=== PATIENT | male | born 1955 | race African-American/Black ===

== ENCOUNTER 2016-06-08 14:45 | Inpatient (IN) | payer OTHER ==
[~2016-06-08] VITALS: Ht 170.2 cm; Wt 97.1 kg
--- NOTE | ~2016-06-08 | D ---
[facility] [place] [address] DISCHARGE SUMMARY Name: JOSEPH MOSLEY Room #: 426-P DIS IN M.R.#: [id number] Admission: 06/08/16 Attend Phys: Bienvenido Gamez MD Discharge: 06/13/16 Date of : 55 Report #: [id number] THIS REPORT FOR: //name// CC: SHAHRAM physician/PCP Bienvenido Gamez DATE OF SERVICE: 06/13/2016 HISTORY OF PRESENT ILLNESS: The patient is a 60-year-old man who came to the hospital with chest pain. Please refer to admission H and P for details. The patient has multiple medical problems, including diabetes mellitus type 2, chronic kidney disease, as well as metastatic prostate cancer. HOSPITALIZATION COURSE: The patient was hospitalized at [facility]. The patient was seen by health care recruiter. He had cardiac enzymes checked, as well as EKG was followed. There was no evidence of acute coronary syndrome. Roof Technician requested information from the outside hospital. The patient apparently had normal cardiac echo and stress test just few months ago at [facility]. The patient has history of metastatic prostate cancer. Oncologist was consulted. Apparently, the patient has metastatic disease to the bones, including sternal bone, that causes the patient's pain. , the pain is controlled. The patient already is seen by oncologist before, and he will continue to follow up with his oncologist when he goes home. The patient also has elevated creatinine to 1.7. Metformin was discontinued. The patient will be prescribed Januvia. The patient also has a history of schizophrenia. He was seen by psychiatrist. His condition remained stable. Psychiatrist recommended continuation of , as well as citalopram and alprazolam. Currently, the patient's condition is acceptable for him to go home. DISCHARGE DIAGNOSES: 1. Sternal pain, likely due to metastatic prostate cancer to the bones. No evidence of acute coronary syndrome. 2. Reportedly negative cardiac workup few months ago at [facility], including negative stress test and an unremarkable cardiac echo. 3. Diabetes mellitus type 2, suboptimal control, hemoglobin A1c 7.6%. 4. Pancytopenia. 5. Chronic kidney disease stage 3. 6. Schizophrenia, stable on current meds. 7. Hypertension. 8. Dyslipidemia. [address] [address] DISCHARGE SUMMARY Name: JOSEPH MOSLEY Room #: 426-P DIS IN M.R.#: [id number] Admission: 06/08/16 Attend Phys: Bienvenido Gamez MD Discharge: 06/13/16 Date of : 55 Report #: [id number] DISCHARGE MEDICATIONS: Please refer to the medication reconciliation section in the patient's chart. DISPOSITION: The patient is discharged home. FOLLOWUP PLAN: 1. Follow up with the primary care physician in 1-2 weeks. 2. Follow up with oncologist in 1-2 weeks. I spent greater than 30 minutes to coordinate the patient's discharge from the hospital. By: 1208 [id number] Salomon Govea MD /nt
--- NOTE | ~2016-06-08 | S ---
[facility] [place] [address] SURGICAL PATH RPT PROCEDURE Name: JOSEPH MOSLEY Room #: 205-P ADM IN M.R.#: [id number] Admission: 06/08/16 Date of : 55 Discharge: Report #: [id number] Path Case #: [id number] PATHOLOGY REPORT COLLECTION DATE: 06/09/2016 RECEIVED DATE: 06/09/2016 SUBMITTING PHYS: Dr. Essie Archer OTHER PHYS: Dr. Bienvenido Adair SPECIMEN(S) RECEIVED: A.Peripheral smear * * * * * * * * * * * * FINAL DIAGNOSIS: Peripheral blood smear: - Moderate normocytic anemia, mild neutropenia / relative lymphocytosis with mildly left shifted granulocytes, moderate thrombocytopenia, and numerous circulating nucleated red blood cells. (see comment) COMMENT: Overall, the peripheral blood has moderate normocytic anemia, mild neutropenia / relative lymphocytosis with mildly left shifted granulocytes, moderate thrombocytopenia, and numerous circulating nucleated red blood cells. The etiology of the findings is unclear based entirely on slide review. No blasts are seen on scanning. Occasional lymphocytes have plasmacytoid features. Correlation with clinical history and additional laboratory data is required. (DILIAW:; d/t: 06/09/16) PATHOLOGIST: Jenifer Franco M.D. REPORT ELECTRONICALLY SIGNED BY: Jenifer Franco M.D. DATE/TIME: 06/09/2016 21:56 * * * * * * * * * * * * MICROSCOPIC DESCRIPTION: CBC Data (06/09/16): WBC 6,400 /uL, Corrected WBC 5.700, RBC 2.82, hemoglobin 8.9 g/dL, hematocrit 26.1%, MCV 92.6 fL, MCH 31.5 pg, MCHC 34.0 g/dL, RDW 16.1%. Platelet count 60,000 /uL. Manual white blood cell differential: segs 33%, bands 1%, lymphs 52%, monos 8%, eos 1%, basos 1%, metas 2%, myelos 2%, and 12 NRBCs/100 WBCs. Peripheral Blood Smear: Cytomorphological examination of the Patel's stained peripheral blood smear confirms the provided data. Red blood cells show moderate normocytic anemia with only mild anisocytosis. No significant poikilocytosis is identified. White blood cells are [address] [address] SURGICAL PATH RPT PROCEDURE Name: JOSEPH MOSLEY Earlene Room #: 205-P ADM IN M.R.#: [id number] Admission: 06/08/16 Date of : 55 Discharge: Report #: [id number] Path Case #: [id number] predominantly lymphocytes. The lymphocytes are small, round, and mature appearing with condensed chromatin and scant cytoplasm with admixed plasmacytoid lymphocytes. Granulocytes are predominantly segmented neutrophils. Occasional hypersegmented neutrophils are noted. There is a mild left shift with rare metamyelocytes and myelocytes noted on scanning. No blasts or Andrea rods are seen on scanning. Monocytes are mature. Platelets are moderately decreased in number and mainly normal in morphology with rare larger platelets noted. Numerous nucleated red blood cells are seen. CLINICAL HISTORY: 60 year-old man with anemia and thrombocytopenia. Morphologic review of the peripheral blood smear is requested by the patient's physician. INITIAL CPT CODE(S): A; [place] Professional services performed by [facility] at [place] [address], [place] [address] Technical services performed by [facility] at [address] [place] [address], [address], [place] [address]. [facility] [address] [place] [address] PHONE: [phone] DIRECTOR: Shemar Gómez M.D. * * * END OF REPORT * * *
--- NOTE | ~2016-06-08 | EKG ---
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
[~2016-06-08 14:45] MED LIST: ABILIFY10 MG PO; ADULT LOW DOSE81 MG PO; ALPRAZOLAM PO; ASPIR 8181 MG PO; ATIVAN1 MG PO; ATIVAN2 MG PO; AZITHROMYCIN 2250 MG PO; BENADRYL25 MG PO; CIPRO500 MG PO; CLONIDINE PO; DEPAKOTE ER500 MG PO; GLUCOPHAGE1000 MG PO; GLYBURIDE 2.52.5 M1 PO; HEPARIN SQ; HUMALOG100 UNIT/1 SQ; HYDROCODONE-AP1 EAC6 PO; LIPITOR10 MG PO; LISINOPRIL20 MG PO; LOPRESSOR PO; NICOTINE TRANSD21 M1 TRANSDERM; PERCOCET 7.5-31 EACH PO; PRENATAL TABLE1 EAC1 PO; PREVACID15 MG PO; SIMVASTATIN20 MG PO; VISTARIL PO; XANAX 0.5 MG0.5 MG PO; XANAX 1 MG TABLE1 MG PO
[2016-06-08 14:48] VITALS: BP 123/81
[2016-06-08 15:36] LABS: HEMATOCRIT 27.8 % (42.0-52.0); HEMOGLOBIN 9.5 gm/dL (14.0-18.0); MCH 31.3 pg (26.0-34.0); MCHC 34.1 g/dL (28.0-37.0); MCV 91.8 fL (80.0-100.0); RBC 3.03 mil/uL (4.50-6.00); WBC 7.9 thou/uL (4.0-11.0)
[2016-06-08 15:43] LABS: ANION GAP 10 mmol/L (7-16); BUN 14 mg/dL (7-18); CALCIUM 8.3 mg/dL (8.5-10.1); CHLORIDE 104 mmol/L (98-107); CO2 24 mmol/L (21-32); CREATININE 1.5 mg/dL (0.7-1.3); GLUCOSE 123 mg/dL (74-106); POTASSIUM 4.8 mmol/L (3.5-5.1); SODIUM 138 mmol/L (136-145)
[2016-06-08 15:56] LABS: ALBUMIN 3.5 g/dL (3.4-5.0); ALKALINE PHOSPHATASE 1971 U/L (46-116); SGOT 19 U/L (15-37); SGPT 34 U/L (30-65); TOTAL BILIRUBIN 0.5 mg/dL (<0.1-1.0); TROPONIN-I < 0.04 ng/mL (<0.04-0.07)
[2016-06-08 17:22] VITALS: BP 144/85
[2016-06-08] MEDS ORDERED: XANAX 0.25 MG0.25 MG PO (17:35)
[2016-06-08] MEDS ORDERED: LIPITOR40 MG PO (17:36)
[2016-06-08] MEDS ORDERED: COREG3.125 MG PO (17:37)
[2016-06-08] MEDS ORDERED: VITAMIN D2000 UNIT PO (17:37)
[2016-06-08] MEDS ORDERED: CLOTRIMAZOLE 1%15 G1 TOP (17:38)
[2016-06-08] MEDS ORDERED: CELEXA10 MG PO (17:38)
[2016-06-08] MEDS ORDERED: CYCLOBENZAPRINE5 MG PO (17:39)
[2016-06-08] MEDS ORDERED: NEURONTIN 300300 M1 PO (17:40)
[2016-06-08] MEDS ORDERED: PROSCAR 5MG TABL5 MG PO (17:40)
[2016-06-08] MEDS ORDERED: LISINOPRIL20 MG PO (17:41)
[2016-06-08] MEDS ORDERED: METFORMIN HCL500 MG PO (17:42)
[2016-06-08] MEDS ORDERED: NITROGLYCERIN0.4 MG SUBLING (17:44)
[2016-06-08] MEDS ORDERED: PROTONIX40 M1 PO (17:46)
[2016-06-08] MEDS ORDERED: CENTRUM SILVER1 EAC2 PO (17:47)
[2016-06-08] MEDS ORDERED: FLOMAX0.4 MG PO (17:47)
[2016-06-08 19:32] LABS: MAGNESIUM 1.7 mg/dL (1.8-2.4)
[2016-06-08 19:33] VITALS: BP 115/59
[2016-06-08 19:45] LABS: ABSOLUTE RETIC COUNT 0.0697 10^6/uL; OBSERVED RETIC COUNT 2.31 % (0.6-2.6)
[2016-06-08 20:33] LABS: FOLIC ACID 13.6 ng/mL (8.6-58.9)
[2016-06-08 21:42] LABS: URINE BILIRUBIN NEGATIVE (Negative); URINE BLOOD NEGATIVE (Negative); URINE COLOR YELLOW; URINE GLUCOSE-RANDOM* NEGATIVE (Negative); URINE KETONES NEGATIVE (Negative); URINE LEUKOCYTES-REFLEX NEGATIVE (Negative); URINE PROTEIN (DIPSTICK) NEGATIVE (Negative); URINE SPECIFIC GRAVITY <= 1.005 (1.003-1.035); URINE UROBILINOGEN 0.2 E.U./dl (0.2-1.0)
[2016-06-08 21:51] LABS: AMP/METHAMP Negative (Negative); BARBITURATES Negative (Negative); BENZODIAZEPINES Negative (Negative); COCAINE Negative (Negative); METHADONE Negative (Negative); OPIATES Negative (Negative); PCP Negative (Negative); THC Negative (Negative)
[2016-06-08 23:24] VITALS: BP 130/67
[2016-06-09 03:54] VITALS: BP 108/68
[2016-06-09 04:03] LABS: ANION GAP 11 mmol/L (7-16); BUN 16 mg/dL (7-18); CALCIUM 8.2 mg/dL (8.5-10.1); CHLORIDE 105 mmol/L (98-107); CHOLESTEROL 131 mg/dL (<200); CO2 22 mmol/L (21-32); CREATININE 1.6 mg/dL (0.7-1.3); GLUCOSE 172 mg/dL (74-106); HDL CHOLESTEROL 36 mg/dL (>40); LDL CHOLESTEROL 66 mg/dL (<100); MAGNESIUM 1.9 mg/dL (1.8-2.4); POTASSIUM 4.7 mmol/L (3.5-5.1); SODIUM 138 mmol/L (136-145); TC:HDL 3.6 Ratio (Not establshd); TRIGLYCERIDE 147 mg/dL (<150); VLDL 29 mg/dL (<40)
[2016-06-09 04:20] LABS: HEMATOCRIT 26.1 % (42.0-52.0); HEMOGLOBIN 8.9 gm/dL (14.0-18.0); MCH 31.5 pg (26.0-34.0); MCV 92.6 fL (80.0-100.0); PLATELET COUNT 60 thou/uL (150-400); RBC 2.82 mil/uL (4.50-6.00); RDW 16.1 % (10.5-14.5); WBC 6.4 thou/uL (4.0-11.0)
[2016-06-09 04:25] LABS: MANUAL DIFF YES
[2016-06-09 08:01] VITALS: BP 116/70
[2016-06-09 09:28] LABS: ABSOLUTE NEUTROPHILS 1.9 thou/uL (1.4-8.2); METAMYELOCYTES 2 %; MYELOCYTES 2 %; NUCLEATED RBCS 12 /100WBC; TOTAL CELL COUNT 100
[2016-06-09 09:29] LABS: ANISOCYTOSIS 1+; POLYCHROMASIA OCCASIONAL
[2016-06-09 12:43] LABS: APTT 27.6 Seconds (24.5-32.8); INR 1.1; PROTIME 11.5 Seconds (9.3-11.4)
[2016-06-09 15:55] VITALS: BP 105/57
[2016-06-09 19:36] VITALS: BP 150/71
[2016-06-09 23:12] LABS: HEPATITIS C VIRUS AB 0.1 (0.0-0.9); HIV ANTIBODY Non Reactive (Non Reactive)
[2016-06-10 03:18] LABS: HEMATOCRIT 25.4 % (42.0-52.0); HEMOGLOBIN 8.9 gm/dL (14.0-18.0); MANUAL DIFF YES; MCH 32.5 pg (26.0-34.0); MCHC 35.1 g/dL (28.0-37.0); MCV 92.5 fL (80.0-100.0); PLATELET COUNT 62 thou/uL (150-400); RBC 2.74 mil/uL (4.50-6.00); RDW 16.4 % (10.5-14.5)
[2016-06-10 03:29] LABS: CALCIUM 7.4 mg/dL (8.5-10.1); CREATININE 1.6 mg/dL (0.7-1.3); POTASSIUM 5.1 mmol/L (3.5-5.1)
[2016-06-10 04:56] VITALS: BP 111/58
[2016-06-10 06:01] LABS: ABSOLUTE NEUTROPHILS 2.2 thou/uL (1.4-8.2); NUCLEATED RBCS 17 /100WBC; PLATELET ESTIMATE DECREASED; TOTAL CELL COUNT 100
[2016-06-10 06:02] LABS: ANISOCYTOSIS 1+; POLYCHROMASIA 2+
[2016-06-10 07:01] VITALS: BP 103/56
[2016-06-10 11:40] VITALS: BP 105/60
[2016-06-10 15:55] VITALS: BP 106/59
[2016-06-10 20:09] LABS: TESTOSTERONE* 647 ng/dL (348-1197)
[2016-06-11 03:43] LABS: CALCIUM 8.4 mg/dL (8.5-10.1); CREATININE 1.6 mg/dL (0.7-1.3); POTASSIUM 5.4 mmol/L (3.5-5.1)
[2016-06-11 04:20] VITALS: BP 110/60
[2016-06-11 05:35] LABS: GLYCOHEMOGLOBIN (HGB A1C) 7.6 % (4.8-5.6)
[2016-06-11 07:10] VITALS: BP 111/77
[2016-06-11 11:20] VITALS: BP 137/105
[2016-06-11 17:20] VITALS: BP 117/61
[2016-06-11 19:45] VITALS: BP 116/61
[2016-06-12 04:46] VITALS: BP 108/63
[2016-06-12 05:16] LABS: CALCIUM 8.6 mg/dL (8.5-10.1); CREATININE 1.7 mg/dL (0.7-1.3); POTASSIUM 4.7 mmol/L (3.5-5.1)
[2016-06-12 07:50] VITALS: BP 108/72
[2016-06-12 15:26] VITALS: BP 110/62
[2016-06-12 20:00] VITALS: BP 141/117
[2016-06-13 05:00] VITALS: BP 128/72
[2016-06-13 07:07] VITALS: BP 124/72
[2016-06-13 10:52] VITALS: BP 98/58
[2016-06-13] MEDS ORDERED: JANUVIA50 MG PO (12:13)
[2016-06-13] MEDS ORDERED: HYDROCODONE-AP1 EAC6 PO (12:13)
[2016-06-13] MEDS ORDERED: XANAX 0.25 MG0.25 MG PO (12:13)
[2016-06-13] MEDS ORDERED: NORVASC5 MG PO (12:13)
[2016-06-13] MEDS ORDERED: CELEXA 10 MG TA10 M1 PO (12:13)
[2016-06-13] MEDS ORDERED: ZYPREXA 5 MG TAB5 M1 PO (12:13)
[2016-06-13 12:56] VITALS: BP 98/58
[2016-06-14 08:08] LABS: A/G RATIO 1.1 (0.7-1.7); ALBUMIN 3.2 g/dL (2.9-4.4); ALPHA 1 0.3 g/dL (0.0-0.4); ALPHA 2 0.9 g/dL (0.4-1.0); BETA 1.1 g/dL (0.7-1.3); GAMMA 0.5 g/dL (0.4-1.8); M-SPIKE Not Observed g/dL (Not Observed)
== END 2016-06-13 14:49 | disposition home or self-care (01) | DRG 313 ==
LOC: ER 14:45 → 2N 16:24 → EROBS 16:24 → 2N 17:05 → 4E 06-12 11:01
PROVIDERS: Internal Medicine; Internal Medicine Endocrinology, Diabetes & Metabolism; Internal Medicine Hematology & Oncology; Physician Assistant
DX: R07.89 Other chest pain (principal); I47.2 Ventricular tachycardia; C79.51 Secondary malignant neoplasm of bone; D61.818 Other pancytopenia; N13.30 Unspecified hydronephrosis; D69.6 Thrombocytopenia, unspecified; D64.9 Anemia, unspecified; E78.5 Hyperlipidemia, unspecified; C61 Malignant neoplasm of prostate; I12.9 Hypertensive chronic kidney disease with stage 1 through stage 4 chronic kidney disease, or unspecified chronic kidney disease; E11.22 Type 2 diabetes mellitus with diabetic chronic kidney disease; F17.210 Nicotine dependence, cigarettes, uncomplicated; E78.00 Pure hypercholesterolemia, unspecified; N18.3 Chronic kidney disease, stage 3 (moderate); E11.65 Type 2 diabetes mellitus with hyperglycemia; E11.42 Type 2 diabetes mellitus with diabetic polyneuropathy; K21.9 Gastro-esophageal reflux disease without esophagitis; F41.9 Anxiety disorder, unspecified; G89.29 Other chronic pain; F60.0 Paranoid personality disorder; M54.5 Low back pain; F20.9 Schizophrenia, unspecified; N13.9 Obstructive and reflux uropathy, unspecified; Z82.49 Family history of ischemic heart disease and other diseases of the circulatory system; Z87.820 Personal history of traumatic brain injury; Z88.0 Allergy status to penicillin; Z88.8 Allergy status to other drugs, medicaments and biological substances; Z79.82 Long term (current) use of aspirin; Z79.4 Long term (current) use of insulin; Z79.899 Other long term (current) drug therapy; Z71.6 Tobacco abuse counseling
CPT/HCPCS: 10081; 10783

== ENCOUNTER 2016-07-23 13:06 | Emergency (ER) | payer OTHER ==
[~2016-07-23] VITALS: Ht 170.2 cm; Wt 101.6 kg
--- NOTE | ~2016-07-23 | EKG ---
[address] [address] [place] [address] ELECTROCARDIOGRAM REPORT Name: JOSEPH MOSLEY Room #: REG Marium#: [id number] Admission: 07/23/16 Attend Phys: Discharge: Date of : 55 Report #: [id number] THIS REPORT FOR: //name// 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: ABDELRAHMAN : 1955 Requested By: Kendall Mcnamara Order Number: [id number] MD: Moises Mckeon Measurements Intervals [place] Rate: 101 P: 73 [place]: 141 QRS: 26 QRSD: 83 T: 41 QT: 329 QTc: 427 Interpretive Statements Sinus tachycardia Ventricular premature complex Compared to ECG 06/08/2016 14:50:09 Ventricular premature complex(es) now present Electronically Signed On 07-23-2016 16:05:46 CDT by Moises Mckeon [email or web address] <ELECTRONICALLY SIGNED> By: Moises Mckeon MD, [facility] 07/23/16 1605 1311 1311 Moises Mckeon MD, FACC /EPI
[~2016-07-23 13:06] MED LIST changes: +CELEXA 10 MG TA10 M1 PO; +CELEXA10 MG PO; +CENTRUM SILVER1 EAC2 PO; +CLOTRIMAZOLE 1%15 G1 TOP; +COREG3.125 MG PO; +CYCLOBENZAPRINE5 MG PO; +FLOMAX0.4 MG PO; +JANUVIA50 MG PO; +LIPITOR40 MG PO; +METFORMIN HCL500 MG PO; +NEURONTIN 300300 M1 PO; +NITROGLYCERIN0.4 MG SUBLING; +NORVASC5 MG PO; +PROSCAR 5MG TABL5 MG PO; +PROTONIX40 M1 PO; +VITAMIN D2000 UNIT PO; +XANAX 0.25 MG0.25 MG PO; +XANAX1 MG PO; +ZYPREXA 5 MG TAB5 M1 PO
[2016-07-23 13:46] LABS: HEMOGLOBIN 7.8 gm/dL (14.0-18.0); MCH 31.5 pg (26.0-34.0); MCHC 33.8 g/dL (28.0-37.0); MCV 93.1 fL (80.0-100.0); PLATELET COUNT 68 thou/uL (150-400); RBC 2.47 mil/uL (4.50-6.00); RDW 19.5 % (10.5-14.5)
[2016-07-23 13:47] LABS: MANUAL DIFF YES
[2016-07-23 13:53] LABS: ANION GAP 12 mmol/L (7-16); BUN 13 mg/dL (7-18); CALCIUM 8.9 mg/dL (8.5-10.1); CHLORIDE 104 mmol/L (98-107); CO2 22 mmol/L (21-32); CREATININE 1.4 mg/dL (0.7-1.3); GLUCOSE 111 mg/dL (74-106); POTASSIUM 4.1 mmol/L (3.5-5.1); SODIUM 138 mmol/L (136-145)
[2016-07-23 14:04] LABS: NT-PRO BRAIN NAT PEPTIDE 58 pg/mL (<300); TROPONIN-I < 0.04 ng/mL (<0.04-0.07)
[2016-07-23 14:19] LABS: ABSOLUTE NEUTROPHILS 3.3 thou/uL (1.4-8.2); NUCLEATED RBCS 35 /100WBC; TOTAL CELL COUNT 100
[2016-07-23 14:20] LABS: ANISOCYTOSIS 3+; POLYCHROMASIA 1+
[2016-07-23] MEDS ORDERED: VISTARIL 25 MG25 M1 PO (16:55)
[2016-07-23] MEDS ORDERED: IBUPROFEN 400400 M2 PO (16:55)
== END 2016-07-23 17:25 | disposition home or self-care (01) ==
LOC: ER 13:06
PROVIDERS: Nurse Practitioner
DX: F41.9 Anxiety disorder, unspecified (principal); D64.9 Anemia, unspecified; R07.89 Other chest pain; E11.9 Type 2 diabetes mellitus without complications; I10 Essential (primary) hypertension; G89.29 Other chronic pain; M54.5 Low back pain; N40.0 Benign prostatic hyperplasia without lower urinary tract symptoms; F60.0 Paranoid personality disorder; F17.210 Nicotine dependence, cigarettes, uncomplicated; Z85.46 Personal history of malignant neoplasm of prostate; Z88.8 Allergy status to other drugs, medicaments and biological substances; Z88.0 Allergy status to penicillin

== ENCOUNTER 2016-07-25 21:56 | Emergency (ER) | payer OTHER ==
[~2016-07-25] VITALS: Ht 170.2 cm; Wt 101.6 kg
--- NOTE | ~2016-07-25 | EKG ---
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1955 Requested By: Mick Boswell Order Number: [id number] MD: Moises Mckeon Measurements Intervals [place] Rate: 107 P: 65 [place]: 138 QRS: 24 QRSD: 83 T: 51 QT: 331 QTc: 442 Interpretive Statements Sinus tachycardia Probable left atrial enlargement Compared to ECG 07/23/2016 13:11:26 Ventricular premature complex(es) no longer present Electronically Signed On 07-26-2016 8:40:30 CDT by Moises Mckeon [email or web address] <ELECTRONICALLY SIGNED> By: Moises Mckeon MD, [facility] 07/26/16 0840 2244 2244 Moises Mckeon MD, FACC /EPI
[~2016-07-25 21:56] MED LIST changes: +IBUPROFEN 400400 M2 PO; +VISTARIL 25 MG25 M1 PO
[2016-07-25 23:13] LABS: HEMATOCRIT 22.3 % (42.0-52.0); HEMOGLOBIN 7.5 gm/dL (14.0-18.0); MCH 31.6 pg (26.0-34.0); MCHC 33.6 g/dL (28.0-37.0); MCV 93.9 fL (80.0-100.0); PLATELET COUNT 55 thou/uL (150-400); RBC 2.37 mil/uL (4.50-6.00); RDW 19.8 % (10.5-14.5); WBC 9.2 thou/uL (4.0-11.0)
[2016-07-25 23:14] LABS: MANUAL DIFF YES
[2016-07-25 23:31] LABS: ANION GAP 11 mmol/L (7-16); BUN 16 mg/dL (7-18); CALCIUM 8.5 mg/dL (8.5-10.1); CHLORIDE 99 mmol/L (98-107); CO2 21 mmol/L (21-32); CREATININE 1.6 mg/dL (0.7-1.3); GLUCOSE 161 mg/dL (74-106); POTASSIUM 4.4 mmol/L (3.5-5.1); SODIUM 131 mmol/L (136-145)
[2016-07-25 23:36] LABS: ABSOLUTE NEUTROPHILS 3.7 thou/uL (1.4-8.2); ANISOCYTOSIS 2+; ATYPICAL LYMPHS 2 %; LARGE PLATELETS OCCASIONAL; METAMYELOCYTES 5 %; NUCLEATED RBCS 8 /100WBC; TOTAL CELL COUNT 100
[2016-07-25 23:37] LABS: POLYCHROMASIA 1+
[2016-07-25 23:44] LABS: ALBUMIN 3.3 g/dL (3.4-5.0); ALKALINE PHOSPHATASE 1290 U/L (46-116); SGOT 35 U/L (15-37); SGPT 18 U/L (30-65); TOTAL BILIRUBIN 0.8 mg/dL (<0.1-1.0); TOTAL PROTEIN 7.4 g/dL (6.4-8.2); TROPONIN-I < 0.04 ng/mL (<0.04-0.07)
[2016-07-26 22:10] LABS: TESTOSTERONE* 226 ng/dL (348-1197)
== END 2016-07-26 05:47 | disposition home or self-care (01) ==
LOC: ER 21:56
PROVIDERS: Emergency Medicine; Physician Assistant
DX: C79.51 Secondary malignant neoplasm of bone (principal); C61 Malignant neoplasm of prostate; E11.9 Type 2 diabetes mellitus without complications; I10 Essential (primary) hypertension; F41.9 Anxiety disorder, unspecified; M54.5 Low back pain; F39 Unspecified mood [affective] disorder; Z98.890 Other specified postprocedural states; Z88.8 Allergy status to other drugs, medicaments and biological substances; Z88.0 Allergy status to penicillin; F17.210 Nicotine dependence, cigarettes, uncomplicated

== ENCOUNTER 2016-11-07 16:02 | Emergency (ER) | payer OTHER ==
[~2016-11-07] VITALS: Ht 170.2 cm; Wt 94.8 kg
--- NOTE | ~2016-11-07 | EKG ---
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
[~2016-11-07 16:02] MED LIST changes: +NAPROSYN500 MG PO
[2016-11-07 17:17] LABS: ABSOLUTE NEUTROPHILS 2.8 thou/uL (1.4-8.2); BASOPHILS 1.2 % (0.0-2.0); EOSINOPHILS 4.5 % (0.0-3.0); HEMATOCRIT 26.5 % (42.0-52.0); LYMPHOCYTES 41.9 % (24.0-44.0); MCH 33.9 pg (26.0-34.0); MCHC 34.2 g/dL (28.0-37.0); MCV 99.1 fL (80.0-100.0); MONOCYTES 10.7 % (1.0-8.0); PLATELET COUNT 162 thou/uL (150-400); POLYS 41.7 % (36.0-66.0); RBC 2.67 mil/uL (4.50-6.00); RDW 19.2 % (10.5-14.5); WBC 6.7 thou/uL (4.0-11.0)
[2016-11-07 17:19] LABS: MANUAL DIFF NO
[2016-11-07 17:31] LABS: ANION GAP 10 mmol/L (7-16); BUN 25 mg/dL (7-18); CHLORIDE 107 mmol/L (98-107); CO2 21 mmol/L (21-32); CREATININE 1.5 mg/dL (0.7-1.3); GLUCOSE 124 mg/dL (74-106); SODIUM 138 mmol/L (136-145)
[2016-11-07 17:39] LABS: TROPONIN-I < 0.04 ng/mL (<0.04-0.07)
[2016-11-07] MEDS ORDERED: XANAX 1 MG TABLE1 MG PO (18:10)
== END 2016-11-07 18:18 | disposition home or self-care (01) ==
LOC: ER 16:02
PROVIDERS: Emergency Medicine
DX: F41.9 Anxiety disorder, unspecified (principal); D64.9 Anemia, unspecified; M25.562 Pain in left knee; I10 Essential (primary) hypertension; F60.0 Paranoid personality disorder; N40.0 Benign prostatic hyperplasia without lower urinary tract symptoms; G89.29 Other chronic pain; M54.5 Low back pain; F17.210 Nicotine dependence, cigarettes, uncomplicated; Z85.46 Personal history of malignant neoplasm of prostate; Z88.8 Allergy status to other drugs, medicaments and biological substances; Z88.0 Allergy status to penicillin